=== PATIENT | female | born 1995 | race Two or more races ===

== ENCOUNTER 2021-02-17 08:43 | Emergency (ER) | payer OTHER ==
[~2021-02-17] VITALS: Ht 165.1 cm; Wt 59.0 kg
[2021-02-17] MEDS ORDERED: IV NORMAL SALINE 1000 ML BAG IV ONE ×2 (09:15→10:45)
[2021-02-17] MEDS ORDERED: ONDANSETRON 4 MG/2 ML VIAL IV ONE (09:15)
[2021-02-17] MEDS ORDERED: PANTOPRAZOLE SODIUM 40 MG VIAL IV ONE (09:15)
[2021-02-17] MEDS ORDERED: KETOROLAC TROMETHAMINE 15 MG INJ IVP ONE (09:15)
--- NOTE | 2021-02-17 09:20 | NUR ---
Receved pt 25 yrs walking in from home c/o nusea and vomitin in last 24 hr x6 i feel dehdrated abdomine soft none tender to touch seen by Dr Nona LAZO SENT TO LAB INSERTED ANGO CATH # 20 on [address] wrist infustion and patent medition give as order eMAR
[2021-02-17] MEDS ORDERED: ONDANSETRON 4 MG/2 ML VIAL ONE (09:28)
[2021-02-17] MEDS ORDERED: PANTOPRAZOLE SODIUM 40 MG VIAL ONE (09:28)
[2021-02-17] MEDS ORDERED: KETOROLAC TROMETHAMINE 15 MG INJ ONE (09:28)
[2021-02-17 10:14] LABS: *BILIRUBIN,URIN NEGATIVE (NEGATIVE); *BLOOD, URINE NEGATIVE (NEGATIVE); *CLARITY,URINE CLEAR (CLEAR); *COLOR,URINE YELLOW (YELLOW); *KETONES,URINE 2+ (NEGATIVE); *UROBILINOGEN,URINE 0.2 E.U./dl (NORMAL); LEUKOCYTE ESTERASE ,URINE NEGATIVE (NEGATIVE); NITRITE, URINE NEGATIVE (NEGATIVE); UGLUCOSE NEGATIVE (NEGATIVE)
[2021-02-17 10:15] LABS: HEMATOCRIT 43.1 % (31.2-41.9); MEAN CORPUSCULAR HEMOGLOBIN 29.6 uug (24.7-32.8); MEAN CORPUSCULAR VOLUME 87.5 fL (75.5-95.3); PLATELET COUNT (AUTO) 204 K/uL (179-408)
--- NOTE | 2021-02-17 10:18 | NUR ---
RESTING AND COMFORTABLE after tx
[2021-02-17 10:22] LABS: CARBON DIOXIDE 27 mmol/L (21-32); CHLORIDE 104 mmol/L (98-107); CREATININE 0.8 mg/dL (0.6-1.3); GLUCOSE 101 mg/dL (74-106); POTASSIUM 3.3 mmol/L (3.5-5.1); UREA NITROGEN, BLOOD 13 mg/dL (7-18)
[2021-02-17 10:28] LABS: ALANINE AMINOTRANSFERASE 11 U/L (14-59); ALKALINE PHOSPHATASE 49 U/L (50-136); ASPARTATE AMINOTRANSFERASE 15 U/L (15-37); BILIRUBIN,DIRECT 0.1 mg/dL (0.0-0.2); BILIRUBIN,TOTAL 0.7 mg/dL (0.2-1.0); TOTAL PROTEIN, SERUM 7.6 g/dL (6.4-8.2)
[2021-02-17 10:42] LABS: MUCUS,URINE MODERATE /LPF (0-FEW)
[2021-02-17 10:43] LABS: SQUAMOUS EPITHELIAL CELL,UR FEW /HPF (NONE SEEN)
[2021-02-17 10:44] LABS: BACTERIA,URINE NONE SEEN /HPF (NONE SEEN); RBC,URINE 0-3 /HPF (0-3); WBC,URINE NONE SEEN /HPF (0-3)
--- NOTE | 2021-02-17 11:25 | NUR ---
pt responded to tx dineses nausea and vomiting feeling resove 2 nd ns 1l infused and patent
[2021-02-17 12:11] LABS: LIPASE 67 U/L (73-393)
--- NOTE | 2021-02-17 12:13 | NUR ---
pt tolorated po inctick ice chipce looks comfortable
[2021-02-17] MEDS ORDERED: OMEP40CA21 PO (12:16)
[2021-02-17] MEDS ORDERED: ONDA8TAB13 PO (12:16)
--- NOTE | 2021-02-17 12:50 | NUR ---
dineses nausea or vomiting at this d/c instraction given to pt fallow and verblized understood d/c instraction given to pt d/c home with stable vs
[2021-02-17 13:01] VITALS: BP 109/71
== END 2021-02-17 12:55 | disposition home or self-care (01) ==
LOC: ER 08:43
DX: R11.10 Vomiting, unspecified (principal); E86.0 Dehydration; E87.6 Hypokalemia; Z88.0 Allergy status to penicillin
CPT/HCPCS: 36415; 80048; 80076; 81001; 83690; 84702; 85025; 96361; 96374; 96375; 99284; C9113; J1885; J2405; A4663; J7030